=== PATIENT | male | born 1975 | race Caucasian/White ===

== ENCOUNTER → 2020-07-30 08:27 | Outpatient (CLI) | payer OTHER, SELFPAY ==
--- NOTE | 2020-07-30 | DI.NM.S_ITS ---
PROCEDURE: NM BONE SCAN WHOLE BODY RADIOPHARMACEUTICAL: 21.3 mCi Tc-99m MDP IV. INDICATIONS: prostate cancer TECHNIQUE: Delayed whole-body scintigrams were obtained approximately 3-4 hours after intravenous injection of radiotracer. Anterior and posterior views were acquired from vertex to feet. Additional left and right oblique views of the right shoulder, chest wall, and pelvis were obtained. COMPARISON: [facility], CT, CT CHEST ABD PEL W CON, 07/30/2020, 9:45. FINDINGS: There is increased uptake in maxilla, right greater than left, most likely related to dental disease. Right shoulder arthroplasty. No lesions are identified in skull, sternum, clavicles, scapulae, ribs, bony pelvis, and visualized shafts of the long bones. There is low level increased uptake in thoracic and lumbar spine with distribution indistinguishable from degenerative disc and facet disease; early metastasis to spine could be obscured by degenerative changes. There are foci of increased periarticular activity involving left shoulder sternoclavicular joints, right wrist, hands, hips, SI joints, knees and feet, compatible with degenerative/arthritic changes. IMPRESSION: 1. No scintigraphic evidence for osseous metastasis. 2. Right shoulder arthroplasty. 3. Degenerative/arthritic changes as noted. Dictated by: Deann Lawrence M.D. on 07/30/2020 at 14:01 Approved by: Deann Lawrence M.D. on 07/30/2020 at 14:04
--- NOTE | 2020-07-30 09:36 | DI.CT.S_ITS ---
PROCEDURE: CT CHEST ABD PEL W CON INDICATIONS: prostate cancer TECHNIQUE: After the administration of oral and intravenous contrast, 5 mm thick sections acquired from the lung apices to the symphysis. 5 mm coronal and sagittal reformats were performed, with additional 7 mm coronal MIP reformats through the lungs. For radiation dose reduction, the following was used: automated exposure control, adjustment of mA and/or kV according to patient size. COMPARISON: None. FINDINGS: Image quality: Excellent. CHEST: Lungs and pleura: No acute airspace opacities. No pleural effusions or pneumothorax. Central and peripheral airways appear patent and normal in caliber. Mediastinum: Heart size is normal. No pericardial effusion. No mediastinal or hilar adenopathy by size criteria. Thoracic aorta and central pulmonary arteries are normal in size. Esophagus is normal in caliber. No hiatal hernia. Chest wall: No axillary or supraclavicular adenopathy by size criteria. Thyroid gland appears normal. ABDOMEN: Solid organs: Liver is normal in size and enhancement. Gallbladder appears normal . Biliary system is non dilated. Pancreas enhances normally. Spleen is normal in size and enhancement. No adrenal nodules. Kidneys demonstrate normal size and enhancement, without hydronephrosis. Peritoneum and bowel: Bowel loops demonstrate normal wall thickness and caliber. No free fluid or air. Nodes and vessels: No retroperitoneal or mesenteric adenopathy by size criteria. Aorta and inferior vena cava are normal in size. Miscellaneous: No ventral hernias. PELVIS: Genitourinary: Bladder wall thickness is normal. Miscellaneous: No inguinal hernias or adenopathy. The prostate gland is not enlarged. There is no suspicion for invasion by prostate neoplasm into adjacent structures. No adenopathy is found either locally or regionally through the lower abdomen and pelvis. Bones: No suspicious bony lesions. No vertebral body compression fractures. IMPRESSION: No evidence of metastatic disease or direct invasion from prostate neoplasm into adjacent structures. No osteolytic or blastic bone lesion. Nuclear medicine bone scan is scheduled to be performed later same day. Dictated by: El Rosa M.D. on 07/30/2020 at 10:58 Approved by: El Rosa M.D. on 07/30/2020 at 11:03
== END ==
PROVIDERS: PCP Physician Assistant Medical; Referring Provider Urology; Visit Provider Urology
DX: C61 Malignant neoplasm of prostate (principal)
CPT/HCPCS: 71260; 74177; 78306; A9503

== ENCOUNTER → 2023-05-30 13:39 | Outpatient (CLI) | payer OTHER, SELFPAY ==
--- NOTE | 2023-05-30 13:55 | DI.CT.S_ITS ---
PROCEDURE: CT IVP A/P W/WO INDICATIONS: Gross hematuria TECHNIQUE: Optional 5 mm thick noncontrast images acquired from the diaphragm to the symphysis pubis. After the administration of intravenous contrast, 5 mm thick images acquired from the diaphragm to the symphysis pubis after a 10-minute delay. 2 mm thick coronal and sagittal reformats were then performed of the kidneys and ureters. For radiation dose reduction, the following was used: automated exposure control, adjustment of mA and/or kV according to patient size. COMPARISON: [facility], [place], PET PSMA PYLARIFY, 02/03/2023, 16:32. [facility], CT, CT CHEST ABD PEL W CON, 07/30/2020, 9:45. [facility], [place], PET NECK TO MID THIGH, 04/05/2021, 15:35. FINDINGS: Image quality: Diagnostic. Kidneys and Ureters: Both kidneys are normal in size, without hydronephrosis or nephrolithiasis. Small bilateral renal hypodensities are not significantly changed and likely represent cysts. However, there is a partially exophytic precontrast hyperdense lesion off the posterolateral left kidney measuring approximately 55 Hounsfield units and measuring 0.8 cm in size (51/series 2). It demonstrates minimal enhancement on postcontrast images measuring approximately 78 Hounsfield units. Comparison with prior studies demonstrates equivocal interval enlargement/prominence. Otherwise, no suspicious solid mass lesions identified in either kidney. No perinephric fat stranding. There is normal bilateral renal enhancement. Renal calyces appear normal in morphology when filled with contrast. Opacified portions of both ureters demonstrate normal caliber Bladder: Bladder wall thickness is normal. No calcified bladder stones. OTHER: Lower chest: Unremarkable. Liver: No solid mass. Gallbladder: No radiopaque gallstones or wall thickening. Biliary ducts: No biliary dilation. Pancreas: No ductal dilation. Spleen: Size is within normal limits. Adrenal Glands: No adrenal nodules. Stomach and Bowel: Normal colonic caliber, without significant wall thickening. Peritoneum: No abnormal intraperitoneal fluid. No free air. Ventral Wall: No significant hernia. Abdominal Nodes: No retroperitoneal or mesenteric adenopathy by size criteria. Vessels: Aorta and inferior vena cava are normal in size. PELVIS: Pelvic Organs: Stable postsurgical changes of prior prostatectomy. No suspicious nodules or adenopathy in the posterior lower pelvis. Pelvic Nodes: No enlarged lymph nodes. Miscellaneous: No inguinal hernias are seen. Bones: No aggressive osseous abnormality. No acute vertebral body compression fractures. Multilevel spondylitic changes throughout the imaged spine. No suspicious osseous lesions. IMPRESSION: No nephrolithiasis or filling defects within the opacified renal collecting system or ureters. Possible mild interval enlargement of small 0.8 cm partially exophytic hyperdense lesion off the posterolateral left kidney demonstrating minimal enhancement. This may be related to small size and slight differences in imaging technique compared to previous studies. Recommend attention on follow-up imaging. Stable postsurgical changes of prior prostatectomy without evidence for local recurrence or metastatic disease in the abdomen or pelvis. Dictated by: Marito Mckeon M.D. on 05/30/2023 at 18:52 Approved by: Marito Mckeon M.D. on 05/30/2023 at 19:08
== END ==
LOC: CT 13:40
PROVIDERS: PCP Physician Assistant Medical; Referring Provider Urology; Visit Provider Urology
DX: N28.9 Disorder of kidney and ureter, unspecified (principal); R31.0 Gross hematuria
CPT/HCPCS: 74178; Q9967

== ENCOUNTER → 2024-07-30 07:06 | Outpatient (CLI) | payer OTHER, SELFPAY ==
--- NOTE | 2024-07-30 07:10 | DI.CT.S_ITS ---
PROCEDURE: CT CHEST W CON INDICATIONS: mass of left chest wall TECHNIQUE: After the administration of intravenous contrast, 5 mm thick sections acquired from the pulmonary apices to the posterior costophrenic angles. 1 mm axial lung, 5 mm thick coronal and sagittal reformats and 7 mm axial MIP were acquired. For radiation dose reduction, the following was used: automated exposure control, adjustment of mA and/or kV according to patient size. COMPARISON: [facility], CT, CT IVP, 06/25/2024, 14:16. [facility], CT, CT IVP A/P W/WO, 05/30/2023, 13:59. [facility], [place], PET PSMA PYLARIFY, 02/03/2023, 16:32. [facility], CT, CT CHEST ABD PEL W CON, 07/30/2020, 9:45. FINDINGS: Image quality: Portions of the chest are suboptimally evaluated secondary to metallic streak artifact from shoulder arthroplasty. Lower Neck: No enlarged lymph nodes. Thyroid: No thyroid nodules which require sonographic follow up, per consensus guidelines. Axillae: No enlarged lymph nodes. Chest Wall: Left chest wall mass inferior to the axilla measuring 7.6 x 4.2 by 7.6 cm series 2, image 59. It measured 4.6 x 2.2 cm on 02/03/2023. On PET scan in 2022 it demonstrated mild uptake. Bones: Unremarkable. Lungs and Pleura: No pneumothorax or pleural effusions. No consolidation or suspicious nodules. Heart: Heart size is normal. No pericardial effusion. Thoracic Vessels: The aorta and pulmonary arteries demonstrate normal size. Mediastinum and [place]: No enlarged lymph nodes. Esophagus: No wall thickening. Mild hiatal hernia. Upper Abdomen: Hepatic steatosis is present. 1.5 cm focus of enhancement within the spleen. IMPRESSION: Left chest wall mass which has slowly increased in size since 2022. It demonstrates mild uptake on PET scan of 2022 which raises concern for potential malignancy. Further evaluation with biopsy is recommended. There Dictated by: Peri Mar M.D. on 07/30/2024 at 13:29 Approved by: Peri Mar M.D. on 07/30/2024 at 15:40
[2024-07-30 07:44] LABS: Estimated Glomerular Filt Rate 39 mL/min (>60)
== END ==
PROVIDERS: PCP Physician Assistant Medical; Referring Provider Physician Assistant Medical; Visit Provider Physician Assistant Medical
DX: R22.2 Localized swelling, mass and lump, trunk (principal); K44.9 Diaphragmatic hernia without obstruction or gangrene; Z96.612 Presence of left artificial shoulder joint; K76.0 Fatty (change of) liver, not elsewhere classified
CPT/HCPCS: 36415; 71260; 82565; Q9967